=== PATIENT | male | born 1955 ===

== ENCOUNTER 2021-03-01 07:21 | Outpatient (CLI) | payer OTHER ==
[~2021-03-01 07:21] MED LIST: ALEVE220 M1 PO; ATACAND32 MG; CEFADROXIL500 MG PO; NAPR500T14 PO; PERCOCET 5-3251 EACH PO; TRICOR48 MG PO
== END 2021-03-01 10:05 | disposition home or self-care (01) ==
LOC: SONOGRAMA 07:21 → MAMO-SONO 07:30 → SONOGRAMA 10:05
PROVIDERS: ATTEND Internal Medicine Gastroenterology
DX: K80.80 Other cholelithiasis without obstruction (principal); R10.84 Generalized abdominal pain

== ENCOUNTER 2021-05-01 07:50 | Outpatient (CLI) | payer OTHER | END 2021-05-01 07:52 | disposition home or self-care (01) | LOC: NUCLEAR 07:50 | PROVIDERS: ATTEND Internal Medicine Gastroenterology | DX: K81.1 Chronic cholecystitis (principal) | CPT/HCPCS: 78226; A9537 ==

== ENCOUNTER 2021-11-01 07:59 | Outpatient (CLI) | payer OTHER | END 2021-11-01 08:00 | disposition home or self-care (01) | LOC: SONOGRAMA 07:59 | PROVIDERS: ATTEND General Practice | DX: K80.00 Calculus of gallbladder with acute cholecystitis without obstruction (principal); B15.9 Hepatitis A without hepatic coma ==